=== PATIENT | male | born 1955 | race Caucasian/White ===

== ENCOUNTER 2016-12-25 07:24 | Emergency (ER) | payer OTHER ==
[2016-12-25 07:35] VITALS: BP 134/89
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
== END 2016-12-25 08:39 | disposition home or self-care (01) ==
LOC: UCEAST 07:24
DX: S52.501A Unspecified fracture of the lower end of right radius, initial encounter for closed fracture (principal); E03.9 Hypothyroidism, unspecified; E78.5 Hyperlipidemia, unspecified; I10 Essential (primary) hypertension; Z87.891 Personal history of nicotine dependence; V19.9XXA Pedal cyclist (driver) (passenger) injured in unspecified traffic accident, initial encounter; Y92.9 Unspecified place or not applicable
CPT/HCPCS: 99211; G0463

== ENCOUNTER 2017-10-22 14:18 | Emergency (ER) | payer OTHER ==
[2017-10-22] MEDS ORDERED: NS 0.9% 1000 ML* 2,000 ML IV ONE (14:23)
[2017-10-22] MEDS ORDERED: Ondansetron INJ* 2 MG/ML VIAL IV ONE (14:32)
[2017-10-22] MEDS ORDERED: Morphine VIAL* 10 MG/ML 1 ML VIAL IV ONE ×2 (14:46→14:57)
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
[2017-10-22 15:06] VITALS: BP 168/83
== END 2017-10-22 15:05 | disposition short-term general hospital (02) ==
LOC: UCEAST 14:18
DX: R42 Dizziness and giddiness (principal); K46.9 Unspecified abdominal hernia without obstruction or gangrene; I10 Essential (primary) hypertension; J45.909 Unspecified asthma, uncomplicated; Z87.891 Personal history of nicotine dependence; R11.0 Nausea; R53.81 Other malaise
CPT/HCPCS: 93005; 96360; 96361; 96374; 96375; 99213; G0463; J2270; J2405

== ENCOUNTER 2017-10-22 15:22 | Inpatient (IN) | payer OTHER ==
[2017-10-22] MEDS ORDERED: NS 0.9% 1000 ML* 1,000 ML IV ONE (16:12)
[2017-10-22] MEDS ORDERED: Ondansetron INJ* 2 MG/ML VIAL IV ONE (16:13)
[2017-10-22] MEDS ORDERED: fentaNYL* 50 MCG/ML 2 ML VIAL (100 MCG VIAL) IV SLOW PU ONE (16:13)
[2017-10-22 16:29] LABS: ABS Basophils 0 10^3/ul (0-0.2); ABS Eosinophils 0 10^3/ul (0-0.6); ABS Lymphocytes 0.6 10^3/ul (1.0-4.8); ABS Monocytes 0.5 10^3/ul (0-0.8); ABS Neutrophils 8.1 10^3/ul (1.5-7.7); ABS Nucleated RBC 0 10^3/ul; Eosinophil % 0.4 % (0-6); Hematocrit 35 % (42-52); Hemoglobin 11.6 g/dl (14.0-18.0); Lymphocyte % 6.3 % (25-47); Mean Corpuscular HGB Conc 33 g/dl (31-36); Mean Corpuscular Hemoglobin 27 pg (27-31); Mean Corpuscular Volume 82 fL (80-94); Mean Platelet Volume 7.2 um3 (7.4-10.4); Nucleated Red Blood Cells % 0; Platelet Count 196 10^3/ul (150-450); Red Cell Distribution Width 15 % (10.5-15); White Blood Count 9.3 10^3/ul (3.5-10.8)
[2017-10-22 16:37] LABS: INR 1.06 (0.77-1.02)
[2017-10-22 16:44] LABS: EGFR Non-African American 66.7 (>60)
[2017-10-22 16:45] LABS: Urine Appearance Cloudy; Urine Blood Negative (Negative); Urine Color Yellow; Urine Ketones 1+ (Negative); Urine Protein Negative (Negative); Urine Red Blood Cell Trace(0-2/hpf) (Absent); Urine Specific Gravity 1.011 (1.010-1.030); Urine Urobilinogen Negative (Negative); Urine White Blood Cell 1+(6-10/hpf) (Absent)
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
[2017-10-22] MEDS ORDERED: Iohexol 300* (CONTRAST) 10 ML SDV IV ONE (18:17)
[2017-10-22] MEDS ORDERED: HYDROmorphone INJ* 2 MG/ML CARPUJECT SYRINGE IV SLOW PU ONE (18:55)
--- NOTE | 2017-10-22 19:21 | RAD ---
EXAM: CT Abdomen and Pelvis With Intravenous Contrast CLINICAL HISTORY: 62 years old, male; Pain; Abdominal pain; Localized; Right lower quadrant (rlq); Prior surgery; Surgery date: 6+ months; Surgery type: Hernia repair to rt groing over 40 yrs ago; Patient HX: Umbilical hernia repair over 15 yrs ago; Additional info: Incarcirated rt ingunal hernia TECHNIQUE: Axial computed tomography images of the abdomen and pelvis with intravenous contrast. All CT scans at this facility use at least one of these dose optimization techniques: automated exposure control; mA and/or kV adjustment per patient size (includes targeted exams where dose is matched to clinical indication); or iterative reconstruction. Coronal and sagittal reformatted images were created and reviewed. CONTRAST: 105 mL of OMNIPAQUE 300 administered intravenously. COMPARISON: No relevant prior studies available. FINDINGS: Lung bases: Bilateral atelectasis at lung bases. ABDOMEN: Liver: Unremarkable. No mass. Gallbladder and bile ducts: Unremarkable. No calcified stones. No ductal dilation. Pancreas: Unremarkable. No mass. No ductal dilation. Spleen: Unremarkable. No splenomegaly. Adrenals: Unremarkable. No mass. Kidneys and ureters: Unremarkable. No solid mass. No hydronephrosis. Stomach and bowel: Right inguinal hernia containing loop of small bowel. The proximal small bowel is dilated. The distal small bowel is relatively decompressed(series 602, image 59). There is fluid in the hernial sac. Findings are concerning for bowel compromise. PELVIS: Appendix: Appendix was not distinctly visualized. No finding to suggest acute appendicitis. Bladder: Unremarkable. No mass. Reproductive: Unremarkable as visualized. ABDOMEN and PELVIS: Intraperitoneal space: Unremarkable. No free air. No significant fluid collection. Bones/joints: Degenerative changes of the spine. No acute fracture. No dislocation. Soft tissues: See above. Vasculature: Unremarkable. No abdominal aortic aneurysm. Lymph nodes: Unremarkable. No enlarged lymph nodes. IMPRESSION: Right-sided inguinal hernia with loop of small bowel. The proximal small bowel is dilated with relative decompression of the distal bowel. These findings are concerning for bowel compromise, possibly early obstruction.
[2017-10-22] MEDS ORDERED: ceFAZolin 2 GM PREMIX in ORs 2 GM/50 ML BAG IVPB ONE (20:25)
[2017-10-22] MEDS ORDERED: Bupivacaine 0.25% W/EPI* 10 ML SDV ONE (21:52)
[2017-10-22] MEDS ORDERED: Midazolam* 1 MG/ML 2 ML VIAL (2 MG) ONE (22:19)
[2017-10-22] MEDS ORDERED: fentaNYL* 50 MCG/ML 2 ML VIAL (100 MCG VIAL) ONE (22:19)
[2017-10-22] MEDS ORDERED: Rocuronium* 10 MG/ML VIAL ONE (22:32)
[2017-10-22] MEDS ORDERED: Succinylcholine* 20 MG/ML 10 ML VIAL ONE (22:55)
[2017-10-22] MEDS ORDERED: Propofol* 10 MG/ML 20 ML BTL IV PUSH ONE (22:55)
[2017-10-22] MEDS ORDERED: Dexamethasone IV* 4 MG/ML 1 ML (4 MG) ONE (22:59)
[2017-10-22] MEDS ORDERED: Ondansetron INJ* 2 MG/ML VIAL ONE (22:59)
[2017-10-23] MEDS ORDERED: Rocuronium* 10 MG/ML VIAL ONE (00:08)
[2017-10-23] MEDS ORDERED: Glycopyrrolate IV* 0.2 MG/ML 1 ML VIAL ONE (00:13)
[2017-10-23] MEDS ORDERED: Neostigmine Methylsulfate* 1 MG/ML 10 ML VIAL (1 mg/ml) ONE (00:13)
[2017-10-23] MEDS ORDERED: Labetalol IV* 5 MG/ML 20 ML VIAL ONE (02:11)
[2017-10-23] MEDS ORDERED: HYDROmorphone INJ* 0.5 MG/0.5 ML SYRINGE IV PRN (02:15)
[2017-10-23] MEDS ORDERED: Naloxone* 0.4 MG/ML 1 ML VIAL IV PRN (02:15)
[2017-10-23] MEDS ORDERED: Ondansetron INJ* 2 MG/ML VIAL IV PRN ×2 (02:15→02:28)
[2017-10-23] MEDS ORDERED: fentaNYL* 50 MCG/ML 2 ML VIAL (100 MCG VIAL) ONE (02:19)
[2017-10-23] MEDS ORDERED: HYDROmorphone INJ1* 1 MG/ML SYRINGE ONE (02:19)
[2017-10-23] MEDS: fentaNYL* 50 MCG/ML 2 ML VIAL (100 MCG VIAL) IV PRN ×2 (02:20→02:38)
[2017-10-23] MEDS ORDERED: oxyCODONE/Acetamin 5/325 MG* TAB PO PRN (02:28)
[2017-10-23] MEDS ORDERED: Morphine INJ* 2 MG/ML 1 ML SYRINGE (TWO MG - NEW SYRINGE VERSION) IV PRN (02:32)
[2017-10-23] MEDS ORDERED: Zosyn per Pharmacy* NOTE FOLLOW UP PRN (03:35)
--- NOTE | 2017-10-23 03:46 | HP ---
CC: [facility]; Dr. Benny Veliz; Dr. Dhiraj Delaney.* HISTORY AND PHYSICAL: Mr. Chung is a 62-year-old gentleman who presented to the emergency room from [facility] care with complaints of right groin bulge and abdominal pain. Patient had been working in the sun with a bear costume, it became very hot and uncomfortable, had some nausea and fatigue and decided to call the day, went home and had severe abdominal pain and went to the [facility] for evaluation with concern for dehydration. He was then noted to have a "a pop" while at the urgent care area being evaluated and a right inguinal bulge was identified. He was sent to the emergency room where he was evaluated. Pain was controlled with narcotics. Patient denied any previous similar symptoms. He did complain of obstipation, nausea without vomiting. PAST MEDICAL HISTORY: Hypothyroidism, hypercholesterolemia, hypertension. PAST SURGICAL HISTORY: Right inguinal hernia repair open as a 21-year-old. He is not sure if he had a mesh placed or not and then umbilical hernia repair 15 years ago at this hospital without mesh and an orthopedic surgery. MEDICATIONS: Include: 1. Rosuvastatin. 2. Amlodipine. 3. Metoprolol. 4. Levothyroxine. 5. Aspirin 81 mg. 6. Patient also takes Motrin as needed. ALLERGIES: He has no known drug allergies. SOCIAL HISTORY: He does not smoke. He drinks approximately 1 drink at night. Denies IV drug abuse. He works at [employer] in [employer]. He is and lives with his . FAMILY HISTORY: Noncontributory. REVIEW OF SYSTEMS: No shortness of breath or chest pain. Nausea as described. Abdominal pain as described. No dysuria. Obstipation. Last bowel movement was yesterday. Patient has had a colonoscopy in the past. Good exercise tolerance. No complications with anesthesia. No bleeding or clotting disorders. No psychiatric illnesses. Endocrine disorder of hypothyroidism. PHYSICAL EXAMINATION GENERAL: He is alert and oriented x3, he is in no apparent distress. VITAL SIGNS: Patient has been afebrile since coming to the hospital. Heart rate within normal limits. Blood pressure is well 128/61. HEAD, EARS, EYES, NOSE, AND THROAT: Normocephalic, atraumatic. Sclerae anicteric. Mucous membranes are moist. NECK: No lymphadenopathy. LUNGS: Clear to auscultation bilaterally. HEART: S1, S2. No murmurs appreciated. ABDOMEN: Soft, nondistended, nontender. Hypoactive bowel sounds. Right inguinal bulge is tender to the touch with no overlying skin changes. This is not reducible without causing too much discomfort. RECTAL: Exam not performed. SCROTAL: Exam was performed and bilateral testicles are normal descended in the scrotum. EXTREMITIES: Within normal limits. LABORATORY DATA: Showed a white count of 9.3 with left shift. H and H 11.6/ 35. Metabolic panel reviewed. Urinalysis with 1+ ketones. DIAGNOSTIC STUDIES: Patient underwent a CAT scan of the abdomen and pelvis with p.o. contrast. These images were reviewed as well as a report that shows a small bowel loop and a right inguinal hernia with decompression of the distal bowel consistent with a small bowel obstruction and concern for a bowel compromise. No free air. I do not appreciate any free fluid. IMPRESSION: Incarcerated recurrent right inguinal hernia with possibility of ischemic bowel and strangulation. I recommend laparoscopic repair of a right inguinal hernia with mesh and laparoscopy with evaluation of the small bowel for possible small bowel resection. I outlined the details of the procedure to Mr. Chung regarding the risks, benefits, and alternatives. I spoke the possibility of open procedure, need for bowel resection and the possibility of leak from the reanastomosis. The possibility of recurrent hernia, prolonged hospitalization. The patient's questions were answered and he will be taken to the OR and NG tube has been placed. Approximately 1 L of fluid was removed. He will go under general anesthesia with intent of reducing the hernia and getting into the hernia space for repair and then laparoscopy. [id number]/[facility] #: [id number] MTDD
[2017-10-23] MEDS ORDERED: ZOSYN 3.375 GM x ONE DOSE over 30 miuntes IVPB ×2 (04:00)
[2017-10-23] MEDS: Ketorolac INJ* 30 MG/ML 1 ML VIAL IV PRN ×3 (08:09→20:36)
[2017-10-23] MEDS: Piperacillin/Tazobactam VIAL*) 3.375 GM in NS 0.9% 100 ML* 100 ML IVPB SCH ×3 (09:52→21:36)
[2017-10-23] MEDS ORDERED: Metoprolol Tartrate IV* 1 MG/ML 5 ML VIAL IV PRN ×2 (10:58→11:18)
--- NOTE | 2017-10-23 11:01 | PN ---
Progress Note - Progress Note Date of Service: 10/23/17 SOAP: Subjective: Pt seen and examined. feeling better. thirsty. no nausea. NGT with minimal output no flatus. Not OOB yet Objective: Temp Pulse Resp BP Pulse Ox 98.1 F 68 18 136/70 100 10/23/17 07:23 10/23/17 07:23 10/23/17 09:52 10/23/17 07:23 10/23/17 07:23 Intake & Output 10/22/17 10/23/17 10/23/17 22:59 06:59 14:59 Intake Total 1000 1262 Output Total 260 Balance 1000 1002 Weight 174 lb 174 lb a and o x3 lungs clear abdo: soft/ ND/ incisional tenderness dressing cdi no calf tenderness Assessment: POD0 SB resection, hernia reapir Plan: d/c ngt possible d/c mckeon later today after pt ambulates continue NPO IV lopressor pain control
[2017-10-23] MEDS: Levothyroxine INJ* 100 MCG/5 ML VIAL IV SCH (11:54)
--- NOTE | 2017-10-23 12:54 | OP ---
CC: Benny Veliz MD; Dhiraj Delaney MD; [facility] * DATE OF OPERATION: 10/23/17 - ROOM #339 DATE OF : 57. SURGEON: Jatin Jean MD. NEUROSURGERY SPINE PHYSICIAN: None. ANESTHESIOLOGIST: Dr. Abarca. ANESTHESIA: Local MAC. PRE-OP DIAGNOSIS: Incarcerated right inguinal hernia, recurrent. POST-OP DIAGNOSIS: Incarcerated right inguinal hernia, recurrent. OPERATIVE PROCEDURE: Open right inguinal hernia repair with mesh and a small bowel resection. ESTIMATED BLOOD LOSS: 100 cc. FLUIDS: Crystalloid fluids given. SPECIMEN: 1. A portion of small bowel. 2. Hernia sac. DRAINS: None. COUNTS: Lap pad count and instrument count correct at the end of the procedure. DESCRIPTION OF PROCEDURE: Mr. Chung had been marked. Case was discussed and a H and P dictated. He was seen by the anesthesiologist, brought to the operating room, placed on the operating table in supine position. Preoperative antibiotics were given. Sequential devices were placed on bilateral lower extremities. General anesthesia was induced. A Balderas catheter was inserted. Next, I made an attempt to reduce the right inguinal hernia. This was very tense at this point and my concern was that I would not able to reduce it with taxis and even if with the laparoscopic approach, I would have difficult time with this recurrent hernia to distally reduce the contents. For this reason, I changed the decision for laparoscopic approach to an approach for this repair. The patient was clipped of hair and prepped and draped in a standard surgical fashion. A time-out was performed. An inguinal incision was made over the previously placed inguinal incision. This was deepened down to the aponeurosis of external oblique. This was attenuated. We did incise this in the direction of the fibers after identifying a hernia medially to this. We could see spermatic structures adjacent to a large distended hernia. We extended the incision of the aponeurosis external oblique medially to the hernia and the spermatic structures and then laterally. I attempted to make flaps cephalad, but ran into the portion of what appeared to be the vasculature of the spermatic cord structures. The cord structures were then isolated right off of the hernia sac with blunt dissection and I placed a [place] drain around this. This will allow for me to better appreciate the hernia itself with both blunt and sharp dissection and get around the medial aspect in the inferior aspect. It appeared to be a very tight defect. Attention was then returned back to the floor of the inguinal canal, which again was scoured in with the vas that clearly going in the appropriate direction towards the deep ring, but the rest of the cord structures taking a more complicated path. They were away from the hernia defect itself. For this reason, we just retracted them laterally and inferiorly to get better access to the hernia sac. Again, additional dissection was carried out until we could free up the entire hernia from all the adjacent structures. This appeared to be right at the medial aspect of the inguinal canal, but it did not appear to be femoral in nature. Again, the floor of the canal was difficult to see appropriately. It was intact with transversalis fascia encompassing this and holding, but for this medial defect. The hernia sac was stripped down until we can get to the main sac itself, which finally was opened up. Some dark-colored fluid was appreciated and a small portion of small bowel was identified and it appeared somewhat ischemic. The contents of the hernia namely small bowel could not be reduced through this very small defect and I was able to free the medial edge of this and opened this up with Davis scissors. Once the defect was somewhat larger, cutting what was likely part of conjoint tendon. We were able to bring additional small bowel into the field of view. This still was proved difficult and I cut more of the tendon to get a better exposure. Once we were able to do this, we can pull additional small bowel from the abdomen into line of vision. Now, we placed some warm towels into the small bowel. It did not show any significant improvement and for this reason, I made a decision to do a resection with primary anastomosis. The mesentery of the resected small bowel was then taken with Estefani clamps and 2-0 Vicryl ties until we had 2 ends of the good-appearing bowel both proximal and distal not knowing which we brought this in opposition to one another and after protecting the wound with multiple lap pads and clamping the bowel distally, I made neurotomies and made two with 60 mm blue KALI stapler. We used approximately 5 cm of it. The common defect was then transected with a TA-60 blue stapler taking not only closing the defect, but removing the ischemic portion of that bowel. This was then passed off as specimen. The corners of the anastomosis was dunked with 3-0 silk sutures and the crutch of the staple line was reapproximated with 3-0 silk sutures as well. The bowel appeared viable. Hemostasis was excellent. There was almost no defect in the mesentery to worry about the closure of the site. The bowel was then dropped back into the abdomen and the edges of the hernia sac were again identified. They were debrided down to the edges and then the hernia sac itself was reapproximated with a pursestring 2-0 Polysorb suture. This then fell back in following the bowel and then we could appreciated the defect which was at this point approximately 2 cm. Next, I made the decision to place a large plug into the site without the concern for the floor of the inguinal canal as this again was scoured and did not appear to be at risk. A plug was then placed and sutured to Phillip's inferiorly, conjoint tendon medially and floor of the canal laterally. There is significant oozing of blood within the defect filling up the cone of the plug , I could not appreciate what was bleeding and a couple of sutures out and removed this plug. We held pressure with gauze in the site. I was able to evaluate some of this defect. It did not appear to enter into the abdomen would rather just could be peritoneal space extending towards the midline. The second plug was reapplied and this similarly closed. Again, significant oozing was appreciated and I did not feel we had control of this. So, this second plug was then removed. Now, we went into the defect pulling up what appeared to be rectus muscle. Cautery was utilized to gain hemostasis. There was no significant arterial venous bleed with rather just persistent oozing at this site. I did not feel we were in any other structure rather than the rectus muscle. The abdominal cavity was not within this site and I feel that the pursestring closure held and we were all extraperitoneal at this point. Copious irrigation again was used and at this time we scoured the musculature. We achieved hemostasis. A third large plug was then inserted and sutured in a similar fashion now with the suture at the conjoint medially at the Phillip's ligament inferiorly and laterally and inferiorly to what was the floor of this repaired inguinal canal. The good portion of the mesh was laid unfurl underneath it and follow as we sutured it to the inner leaflets of the plug. I did not feel that I want to place a mesh at the floor of the canal. This again was scoured and felt that had no defect and with the spermatic structures taking various courses, I did not think this is prudent. Again copious irrigation was used and hemostasis was achieved. We then closed the lateral aspect of the aponeurosis external oblique taking care not to warehouse order picker any of the spermatic structures. We did transect the ilioinguinal nerve as this ran along the spermatic structures since then I was not sure about the lateral aspect of it, so this was transected. We then reapproximated Sommer's fascia with 3-0 Vicryl sutures and then closed the skin with skin barrett followed by sterile dressing. The patient tolerated the procedure well, was extubated in the OR, and transferred to the PACU in stable condition. [id number]/[facility] #: [id number] MTDD
[2017-10-23] MEDS: Morphine INJ* 2 MG/ML 1 ML SYRINGE (TWO MG - NEW SYRINGE VERSION) IV PRN ×2 (13:09→16:24)
[2017-10-23] MEDS: Heparin VIAL(*) 5000 UNITS/ML VIAL (FIVE THOUSAND) SUBCUT SCH ×2 (14:35→21:36)
[2017-10-24] MEDS: Piperacillin/Tazobactam VIAL*) 3.375 GM in NS 0.9% 100 ML* 100 ML IVPB SCH ×2 (03:49→10:00)
[2017-10-24] MEDS: Ketorolac INJ* 30 MG/ML 1 ML VIAL IV PRN ×3 (04:44→15:38)
[2017-10-24] MEDS: Heparin VIAL(*) 5000 UNITS/ML VIAL (FIVE THOUSAND) SUBCUT SCH ×3 (05:42→21:25)
[2017-10-24] MEDS: Levothyroxine INJ* 100 MCG/5 ML VIAL IV SCH (05:42)
[2017-10-24 05:48] LABS: ABS Basophils 0 10^3/ul (0-0.2); ABS Eosinophils 0.1 10^3/ul (0-0.6); ABS Lymphocytes 0.7 10^3/ul (1.0-4.8); ABS Monocytes 0.6 10^3/ul (0-0.8); ABS Neutrophils 3.5 10^3/ul (1.5-7.7); ABS Nucleated RBC 0 10^3/ul; Eosinophil % 2.4 % (0-6); Hematocrit 28 % (42-52); Hemoglobin 9.3 g/dl (14.0-18.0); Lymphocyte % 14.7 % (25-47); Mean Corpuscular HGB Conc 33 g/dl (31-36); Mean Corpuscular Hemoglobin 27 pg (27-31); Mean Corpuscular Volume 81 fL (80-94); Mean Platelet Volume 7.4 um3 (7.4-10.4); Nucleated Red Blood Cells % 0; Platelet Count 148 10^3/ul (150-450); Red Cell Distribution Width 15 % (10.5-15); White Blood Count 4.9 10^3/ul (3.5-10.8)
[2017-10-24 06:12] LABS: EGFR Non-African American 78.7 (>60)
--- NOTE | 2017-10-24 09:08 | PN ---
Progress Note - Progress Note Date of Service: 10/24/17 Note: S: POD #2. On Zosyn. Pain controlled. No N/V. Maybe a little appetite. No flatus or BM. Ambulating a bit. No SOB or CP. O: Vital Signs - 8 hr 10/24/17 03:57 Temperature 98.4 F Pulse Rate 55 Respiratory 16 Rate Blood Pressure 135/78 (mmHg) O2 Sat by Pulse 98 Oximetry Intake and Output Last 24 Hours 10/22/17 10/23/17 10/24/17 10/25/17 06:59 06:59 06:59 06:59 Intake Total 2262 2096 Output Total 260 1700 Balance 2001 396 Weight 174 lb Intake: IV Fluids 0 1995 LR 1756 NS (0.9%) 40 NS 50ML, Cefazolin 2G 50 lr 1000 zosyn 100 200 IVPB 112 100 LR 112 zosyn 100 Oral 0 0 Output: Urine 650 Balderas 250 1050 Residual 10 Balderas 16 Fr 10 Other: # Bowel Movements 0 Gen: NAD Heart: reg Lungs: clear; few bibasilar crackles Abd: min distension and tympany; +BS, though hypo; soft, nontender to palp, other than R groin incision (dsg clean, dry) Laboratory Tests 10/22/17 10/24/17 16:20 05:21 Hgb 11.6 L 9.3 L Hct 35 L 28 L Chemistries ok. A: s/p open repair incarc RIH w/ mesh; SB rsxn P: will d/c Balderas; increase ambulation/activity; will check w/ Dr. Jean re: starting clears and heplocking IV.
[2017-10-24] MEDS: D5W 1/2 NS KCl 20 Meq 1000 ML* 1,000 ML IV SCH (11:26)
[2017-10-24] MEDS: Acetaminophen TAB* 325 MG PO PRN (13:31)
[2017-10-24] MEDS: TAZOBACTAM IVPB SCH ×2 (16:33→21:27)
[2017-10-24] MEDS: PIPERACILLIN IVPB SCH ×2 (16:33→21:27)
[2017-10-24] MEDS: NS 0.9% IVPB SCH ×2 (16:33→21:27)
[2017-10-25] MEDS: NS 0.9% IVPB SCH ×4 (04:14→21:35)
[2017-10-25] MEDS: PIPERACILLIN IVPB SCH ×4 (04:14→21:35)
[2017-10-25] MEDS: TAZOBACTAM IVPB SCH ×4 (04:14→21:35)
[2017-10-25] MEDS: D5W 1/2 NS KCl 20 Meq 1000 ML* 1,000 ML IV SCH (04:16)
[2017-10-25] MEDS: Heparin VIAL(*) 5000 UNITS/ML VIAL (FIVE THOUSAND) SUBCUT SCH ×3 (06:39→21:36)
[2017-10-25] MEDS: Levothyroxine INJ* 100 MCG/5 ML VIAL IV SCH (06:40)
[2017-10-25] MEDS: Acetaminophen TAB* 325 MG PO PRN (11:01)
--- NOTE | 2017-10-25 12:28 | PN ---
Progress Note - Progress Note Date of Service: 10/25/17 SOAP: Subjective: Pt seen and examined. Feeling better today. Surgical pain. pos flatus, no BM tolerating clears Objective: Temp Pulse Resp BP Pulse Ox 98.6 F 59 18 140/80 99 10/25/17 07:46 10/25/17 11:32 10/25/17 11:32 10/25/17 11:32 10/25/17 11:32 Intake & Output 10/24/17 10/25/17 10/25/17 22:59 06:59 14:59 Intake Total 1000 1147 Output Total 800 1225 200 Balance 200 -78 -200 a and o x3, nad lungs clear abdo: soft/ ND/NT dressing removed. No redness or ecchymosis, though ecchymosis at scrotum tender ext wnl Assessment: POD 2, hernia repair, sb resection; resolving ileus Plan: OOB pain control abx OOB advance diet
[2017-10-25] MEDS: Levothyroxine TAB* 100 MCG TAB PO SCH (13:23)
[2017-10-25] MEDS: Metoprolol Succinate XL TAB* 25 MG PO SCH (13:29)
[2017-10-26] MEDS: TAZOBACTAM IVPB SCH (04:33)
[2017-10-26] MEDS: NS 0.9% IVPB SCH (04:33)
[2017-10-26] MEDS: PIPERACILLIN IVPB SCH (04:33)
[2017-10-26] MEDS: Heparin VIAL(*) 5000 UNITS/ML VIAL (FIVE THOUSAND) SUBCUT SCH (06:23)
[2017-10-26] MEDS: Levothyroxine TAB* 100 MCG TAB PO SCH (06:23)
[2017-10-26 07:56] VITALS: BP 141/86
[2017-10-26] MEDS ORDERED: amLODIPine TAB* 5 MG PO SCH (09:00)
[2017-10-26] MEDS ORDERED: Aspirin 81 mg CHEW TAB* 81 MG TAB.CHEW PO SCH (09:00)
[2017-10-26] MEDS: Metoprolol Succinate XL TAB* 25 MG PO SCH (09:30)
--- NOTE | 2017-10-26 21:26 | DS ---
CC: Dr. Benny Veliz; [facility] * DISCHARGE SUMMARY: DATE OF ADMISSION: DATE OF DISCHARGE: 10/26/17 HOSPITAL COURSE: Mr. Chung is a 62-year-old gentleman who presented to the emergency room with an incarcerated, strangulated, recurrent right inguinal hernia. He promptly went to the operating room where he underwent a repair of the hernia with a small bowel resection of an ischemic portion of bowel. Pathology consistent with 10 cm of ischemic, hemorrhagic, necrotic small bowel. In the postoperative period, the patient did well. Pain was managed with narcotics and on 2 NSAIDs. He was treated with antibiotics and diet slowly advanced by postoperative day 3. The patient was ready for discharge and plan was to follow up as an outpatient in my office. I am going to give him 5 more days of Augmentin and the patient will treat his pain with Tylenol or ibuprofen. PHYSICAL EXAM PERFORMED ON DAY OF DISCHARGE: The patient is afebrile. Vital signs are stable. Head is normocephalic and atraumatic. Sclerae anicteric. Mucous membranes moist. Lungs: Clear to auscultation bilaterally. Abdomen: Soft, mildly distended, nontender, non-tympanic. Positive bowel sounds. Staple line of the right groin clean, dry, and intact, with no erythema. Mild ecchymosis extending down to the scrotum. Extremities within normal limits and no calf tenderness. Postoperative day 3, recurrent right inguinal hernia repair with mesh and small bowel resection for strangulated small bowel. The patient will follow up in the office. Prescriptions sent and he understands to contact our office should he not continue to improve. I have told him to have liquid diet for the next day and half before he advances to a solid diet. [id number]/[facility] #: [id number] [facility]
== END 2017-10-26 10:00 | disposition home or self-care (01) | DRG 329 ==
LOC: ED 15:22 → OR 19:28 → SSU 10-23 03:03
PROVIDERS: ADMIT Surgery; ATTEND Surgery
PROC: 0YU50JZ Supplement Right Inguinal Region with Synthetic Substitute, Open Approach (ICD-10-PCS; principal; 2017-10-23)
PROC: 0DB80ZZ Excision of Small Intestine, Open Approach (ICD-10-PCS; 2017-10-23)
DX: K40.31 Unilateral inguinal hernia, with obstruction, without gangrene, recurrent (principal); K55.029 Acute infarction of small intestine, extent unspecified; K56.7 Ileus, unspecified; E03.9 Hypothyroidism, unspecified; E78.00 Pure hypercholesterolemia, unspecified; I10 Essential (primary) hypertension; J45.909 Unspecified asthma, uncomplicated; K59.00 Constipation, unspecified; Z82.49 Family history of ischemic heart disease and other diseases of the circulatory system; Z72.89 Other problems related to lifestyle; Z87.891 Personal history of nicotine dependence
CPT/HCPCS: 36415; 74177; 80048; 80053; 81003; 81015; 83690; 84484; 85025; 85610; 85730; 87086; 88307; 93005; 96360; 96361; 96374; 96375; 99213; 99284; A9270-GY; C1776; C1781; G0463; J0330; J0690; J1100; J1170; J1644; J1885; J2250; J2270; J2405; J2543; J2704; J2710; J3010; Q9967

== ENCOUNTER 2018-02-15 22:36 | Emergency (ER) | payer OTHER ==
--- NOTE | 2018-02-15 23:00 | ED ---
Laceration/Wound HPI - HPI Summary HPI Summary: A 62 y/o male presents to the ED c/o laceration on right middle finger s/p incident. As per triage, "Pt lacerated his R middle finger on a piece of glass" . According to the patient, he cut himself on some glass. He stated that there was glass in the trash and he tried to pull it out and it sliced him on his right middle finger. - History of Current Complaint Stated Complaint: RT MIDDLE FINGER LACERATION Time Seen by Provider: 02/15/18 22:54 Hx Obtained From: Patient Mechanism of Injury: Sharp/Blunt Trauma - SHARP Onset/Duration: Sudden Onset, Still Present Aggravating: Nothing Alleviating: Nothing Timing: Constant Current Severity: None Pain Intensity: 0 Pain Scale Used: 0-10 Numeric Associated Signs & Symptoms: Negative - Additional Pertinent History Primary Care Physician: [id number] - Allergy/Home Medications Allergies/Adverse Reactions: Allergies Allergy/AdvReac Type Severity Reaction Status Date / Time No Known Allergies Allergy Verified 02/15/18 22:41 PMH/Surg Hx/FS Hx/Imm Hx Endocrine/Hematology History: Reports: Hx Thyroid Disease - HYPOTHYROID Denies: Hx Anticoagulant Therapy, Hx Blood Disorders, Hx Blood Transfusions, Hx Diabetes, Hx Anemia, Hx Unexplained Bleeding Cardiovascular History: Reports: Hx Angina - PRESSURE/PAIN, Hx Hypercholesterolemia, Hx Hypertension Respiratory History: Reports: Hx Asthma - PAST HX Denies: Hx Chronic Obstructive Pulmonary Disease (COPD) GI History: Reports: Other GI Disorders - umbilical hernia,rt groin hernia repair History: Denies: Hx Renal Disease Musculoskeletal History: Reports: Hx Back Problems - low back Denies: Hx Congenital Bone Abnormalities, Hx Fibromyalgia, Hx Gout, Hx Orthopedic Injury, Hx Osteoporosis Sensory History: Reports: Hx Contacts or Glasses Denies: Hx Hearing Aid Opthamlomology History: Reports: Hx Contacts or Glasses - Surgical History Surgery Procedure, Year, and Place: umbillical hernia, rt groin hernia repair , BILAT KNEE ARTHROSCOPIES Hx Anesthesia Reactions: No Infectious Disease History: No Infectious Disease History: Reports: Hx Shingles Denies: History Other Infectious Disease, Traveled Outside the [place] in Last 30 Days - Family History Known Family History: Positive: Cardiac Disease, Hypertension, Other - noncontibutory - Social History Alcohol Use: Daily Alcohol Amount: glass wine each night Substance Use Type: Reports: None Smoking Status (MU): Former Smoker Review of Systems Negative: Fever Positive: Other - POSITIVE: LACERATION ON RIGHT MIDDLE FINGER. All Other Systems Reviewed And Are Negative: Yes Physical Exam - Summary Physical Exam Summary: VITAL SIGNS: Reviewed. GENERAL: Patient is a well-developed and nourished male who is lying comfortable in the stretcher. Patient is not in any acute respiratory distress. HEAD AND FACE: No signs of trauma. No ecchymosis, hematomas or skull depressions. No sinus tenderness. EYES: PERRLA, EOMI x 2, No injected conjunctiva, no nystagmus. EARS: Hearing grossly intact. Ear canals and tympanic membranes are within normal limits. MOUTH: Oropharynx within normal limits. NECK: Supple, trachea is midline, no adenopathy, no JVD, no carotid bruit, no c- spine tenderness, neck with full ROM. CHEST: Symmetric, no tenderness at palpation LUNGS: Clear to auscultation bilaterally. No wheezing or crackles. CVS: Regular rate and rhythm, S1 and S2 present, no murmurs or gallops appreciated. ABDOMEN: Soft, non-tender. No signs of distention. No rebound no guarding, and no masses palpated. Bowel sounds are normal. EXTREMITIES: FROM in all major joints, no edema, no cyanosis or clubbing. NEURO: Alert and oriented x 3. No acute neurological deficits. Speech is normal and follows commands. SKIN: Dry and warm. Superficial laceration to the crystal surface of the right middle finger with free flap. Triage Information Reviewed: Yes Vital Signs On Initial Exam: Initial Vitals Temp Pulse Resp BP Pulse Ox 97.4 F 65 16 153/101 96 02/15/18 22:40 02/15/18 22:40 02/15/18 22:40 02/15/18 22:40 02/15/18 22:40 Vital Signs Reviewed: Yes Procedures - Laceration/Wound Repair RIGHT MIDDLE FINGER Location: Other - RIGHT MIDDLE FINGER Length, Depth and Shape: SUPERFICIAL LACERATION TO THE CRYSTAL SURFACE OF RIGHT MIDDLE FINGER WITH A FREE FLAP. Laceration/Wound Explored: clean Closure: Skin Adhesive - LACERATION REPAIR WITH DERMABOND Diagnostics - Vital Signs Vital Signs Temp Pulse Resp BP Pulse Ox 02/15/18 22:40 97.4 F 65 16 153/101 96 - Laboratory Lab Statement: Any lab studies that have been ordered have been reviewed, and results considered in the medical decision making process. Laceration Repair Course/Dx - Course Course Of Treatment: A 62 y/o male presents to the ED c/o laceration on right middle finger s/p incident. Physical examination findings significant for superficial laceration to the crystal surface of the right middle finger with free flap. No laboratory scans were done. No laboratory screens were done. In the ED course, the patient received Boostrix. Laceration repair was done with cleaning the wound and using a dermabond. Patient will be discharged with a diagnosis of finger laceration. Patient is to follow up with primary care primary care provider in 1-2 days. Patient is to return to ED for any new or worsening symptoms. Patient is agreeable with this plan. - Clinical Impression Provider Diagnoses: Finger laceration Discharge - Sign-Out/Discharge Documenting (check all that apply): Patient Departure - DISCHARGE - Discharge Plan Condition: Stable Disposition: HOME Patient Education Materials: Laceration (ED) Referrals: Benny Veliz MD [Primary Care Provider] - 2 Days Additional Instructions: FOLLOW UP WITH PRIMARY CARE PROVIDER IN 1-2 DAYS. RETURN TO ED FOR ANY NEW OR WORSENING SYMPTOMS. - Attestation Statements Document Initiated by Scribe: Yes Documenting Scribe: Boyd Booth Provider For Whom Scribe is Documenting (Include Credential): Alber Crystal MD Scribe Attestation: Boyd Bauman, scribed for Alber Crystal MD on 02/15/18 at 2304. Status of Scribe Document: Ready
[2018-02-15] MEDS ORDERED: Tetan/Diph/Pertus SYR(Tdap)* 0.5 ML SYR(BOOSTRIX) use SYR IM ONE (23:04)
[2018-02-15 23:16] VITALS: BP 144/56
== END 2018-02-15 23:16 | disposition home or self-care (01) ==
LOC: ED 22:36
DX: S61.212A Laceration without foreign body of right middle finger without damage to nail, initial encounter (principal); W25.XXXA Contact with sharp glass, initial encounter; Y92.9 Unspecified place or not applicable; Z87.891 Personal history of nicotine dependence
CPT/HCPCS: 90471; 90715; 99281

== ENCOUNTER → 2018-03-18 07:02 | Day surgery (SDC) | payer OTHER ==
--- NOTE | 2018-03-10 00:46 | HP ---
CC: Dr. Veliz; Dr. Delaney * ADMISSION HISTORY AND PHYSICAL: DATE OF ADMISSION: 03/18/18 ATTENDING SURGEON: Dr. Jatin Jean * (KALPANA Sharma dictating). CHIEF COMPLAINT: Hemorrhoids. HISTORY OF PRESENT ILLNESS: This is a 63-year-old male who for at least for the past 10 years has experienced intermittent rectal bleeding. This is typically associated with bowel movements though sometimes occurs subsequent to bowel movements and then will subside for a few side only to recur again. He describes bright red bleeding into the toilet water. He denies any pain. He has undergone 3 attempted banding of internal hemorrhoids most recently by Dr. Jean on 01/22/18. He states that none of these have been successful and in fact the most recent attempt resulted in the bands coming off the next day. He did undergo colonoscopy along with EGD 2 years ago which he states were both normal other than the presence of the internal hemorrhoids. He was noted recently by Dr. Delaney to have significant iron deficiency anemia and was referred for surgical evaluation. He is on iron replacement. He was seen by Dr. Jean in the office on 01/22/18, at which time exam confirmed the presence of small perianal skin tags. On anoscopy, large internal hemorrhoids were noted with evidence of recent bleeding. Dr. Jean has discussed with him the indications for surgery, the risks, benefits, and alternatives and the patient would like to proceed as scheduled with examination under anesthesia and hemorrhoidectomy. PAST MEDICAL HISTORY: Hypertension, hyperlipidemia, hypothyroidism (on replacement). He was evaluated a number of years ago for some atypical chest pain, which has not recurred. He sees Dr. Delaney regularly (see attached). PAST SURGICAL HISTORY: Previous surgeries include bilateral knee arthroscopies , umbilical hernia repair and most recently on 10/23/17 an open repair of an incarcerated right inguinal hernia with small bowel resection by Dr. Jean. CURRENT MEDICATIONS: 1. Levothyroxine 100 mcg once daily. 2. Metoprolol succinate extended release 25 mg one-half tablet once daily. 3. Amlodipine 2.5 mg once daily. 4. Crestor 5 mg one-half tablet 3 times weekly. 5. Aspirin 81 mg once daily (the patient had recently stopped because of the hemorrhoidal bleeding). 6. Slow release iron 45 mg elemental b.i.d. 7. Colace 100 mg daily. 8. Nitroglycerin 0.4 mg sublingual p.r.n. (the patient has not required). DRUG ALLERGIES: None. FAMILY HISTORY: Negative for anesthesia problems, bleeding, or clotting disorders. SOCIAL HISTORY: The patient is . He works in [employer] at [place]. He is a former smoker who quit in 1981. He drinks on average 4 drinks per week. He denies any recreational drug use. REVIEW OF SYSTEMS: General: No recent constitutional symptoms or acute illnesses. He has had an intentional weight loss of about 40 pounds over the past year. HEENT: No problems reported. Cardiovascular: No chest pain or palpitations. See attached from Dr. Delaney. Respiratory: No shortness of breath or chronic cough. GI: No problems reported other than the HPI. : No problems reported. Endocrine: No diabetes. He is on thyroid replacement. Remainder of review of systems is negative. PHYSICAL EXAMINATION GENERAL: Well-nourished, well-developed male, in no acute distress. VITAL SIGNS: Height 6 feet 1 inch, weight 215 pounds. Blood pressure 142/90, pulse 72, respirations 16. HEENT: Pupils equal and round, reactive. EOMs intact. No significant conjunctival pallor. Oropharynx, teeth in good repair. No intraoral lesions. NECK: No lymphadenopathy, thyromegaly, or masses. LUNGS: Clear to auscultation. No rales or wheezes. HEART: Regular rate and rhythm. No murmur appreciated. ABDOMEN: Soft, nontender to palpation. No palpable masses or organomegaly. GENITALIA: Not examined. RECTAL: Not done (see above per Dr. Jean's exam). BACK: No spinous process or CVA tenderness. EXTREMITIES: No edema. NEUROLOGICAL: Grossly intact. SKIN: Warm and dry. No suspicious rashes or lesions noted. IMPRESSION: Internal hemorrhoids. PLAN: Examination under anesthesia; hemorrhoidectomy. KALPANA SHARMA [id number]/[facility] #: [id number] ARGELIA
[~2018-03-18 07:02] MED LIST: Acetaminophen TAB* 325 MG PO PRN; Atracurium* 10 MG/ML 10 ML VIAL ONE; Buffered Lidocaine 1% SYRIN* 1 ML/SYRINGE INTRADERM ONE; Bupivacaine 0.25% SDV PF* 10 ML VIAL INJ ONE; Dexamethasone IV* 4 MG/ML 1 ML (4 MG) IV SLOW PU ONE; Dexamethasone IV* 4 MG/ML 1 ML (4 MG) ONE; Famotidine IV* 10 MG/ML 2 ML (20 mg) IV ONE; Famotidine IV* 10 MG/ML 2 ML (20 mg) ONE; Gelfoam Sponge SIZE 100* SPONGE ONE; HYDROcodone/ACETAMIN 5-325 MG* 1 TAB ONE; HYDROcodone/ACETAMIN 5-325 MG* 1 TAB PO PRN; Ketorolac INJ* 30 MG/ML 1 ML VIAL IV PRN; Lactated Ringers 1000 ML Bag* 1,000 ML IV SCH; Lidocaine 2% PF * 5 ML VIAL ONE; Midazolam* 1 MG/ML 2 ML VIAL (2 MG) ONE; Morphine VIAL* 10 MG/ML 1 ML VIAL ONE; Morphine VIAL* 4 MG/ML VIAL (1 ml vial) IV PRN; Naloxone* 0.4 MG/ML 1 ML VIAL IV PRN; Ondansetron INJ* 2 MG/ML VIAL IV PRN; Propofol* 10 MG/ML 20 ML BTL ONE; Succinylcholine* 20 MG/ML 10 ML VIAL ONE; ceFAZolin 2 GM PREMIX in ORs 2 GM/50 ML BAG IVPB ONE; fentaNYL* 50 MCG/ML 2 ML VIAL (100 MCG VIAL) IV PRN; fentaNYL* 50 MCG/ML 2 ML VIAL (100 MCG VIAL) ONE
--- NOTE | 2018-03-18 10:33 | BRIEFOPN ---
Brief Operative Note - Surgery Procedures: Procedures Pre-OP Diagnoses: Hemorrhoids Post-op Diagnosis: same Procedure: Exam under anesthesia, hemorrhoidectomy Surgeon: Miranda Asst: none Anethesia: GETA EBL: 50cc IVF: crystalloid Specimen: hemorrhoid x2 Drains: none
[2018-03-18 12:05] VITALS: BP 147/92
--- NOTE | 2018-03-18 12:44 | OP ---
CC: Benny Veliz MD * DATE OF OPERATION: 03/18/18 - [facility] DATE OF : 57 SURGEON: Jatin Jean MD. CRITICAL CARE TECHNICIAN: None. ANESTHESIOLOGIST: Dr. Meier. ANESTHESIA: General anesthesia. PRE-OP DIAGNOSIS: Hemorrhoids. POST-OP DIAGNOSIS: Hemorrhoids. OPERATIVE PROCEDURE: Exam under anesthesia and hemorrhoidectomy x2. ESTIMATED BLOOD LOSS: Less than 50 cc. FLUIDS: Crystalloid fluid given. SPECIMEN: Hemorrhoids x2. DRAINS: None. DESCRIPTION OF PROCEDURE: The patient was identified in the preoperative area. Consent was signed after discussion of the risks, benefits, and alternatives. We spoke of the possible complications, which include not limited to bleeding , infection, need for additional procedures and clearance, possibility of incontinence to flatus or stool and the need for possible additional surgeries regarding that. The patient signed consent. He was taken to the operating room. General anesthesia was delivered while the patient was brought in the stretcher and he was placed in the prone position on the OR table. Buttocks was spread apart. The patient was placed in the Trung knife prone position. The perianal area was prepped with Betadine and draped. Time-out was performed. The patient had received preoperative antibiotics and sequential devices on bilateral lower extremities. Anal canal was dilated to three fingers slowly. The stool was evacuated as needed and then an anal retractor was inserted. Review of the perianal area showed three hemorrhoids, one small at approximately the 10 o'clock position and two larger ones at 5 o'clock and 7 o'clock. Decision was made to remove these two. They were bordering each other very closely. We then placed a 2-0 Vicryl stitch proximally after grasping the hemorrhoid. The stitch was tied and held for retraction purposes. Next, stitch similarly was placed at the 5 o' clock hemorrhoid. Next, injection of lidocaine was carried out at the perianal skin. This was incised with scalpel in an elliptical fashion. We removed the hemorrhoid and the perianal skin, lifting it off the sphincter muscles. We used both LigaSure and cautery as needed. The hemorrhoid was passed off. We did similarly to the 5 o'clock hemorrhoid. Next, we reconstructed the perianal canal with the 2-0 Vicryl stitch in a running fashion. There was a small strip of perianal skin between the two hemorrhoids and utilized this for the closure. Hemostasis was achieved. Review of the perianal area showed that the most significant portion of the disease was removed and Gelfoam was inserted in this perianal area, and the patient was awoken up and was transferred to the PACU in stable condition. [id number]/[facility] #: [id number] MTDD
== END | disposition home or self-care (01) ==
LOC: OR 07:02
PROVIDERS: ATTEND Surgery
DX: K64.2 Third degree hemorrhoids (principal); I10 Essential (primary) hypertension; E78.5 Hyperlipidemia, unspecified; E03.9 Hypothyroidism, unspecified
CPT/HCPCS: 88304; J0330; J0690; J1100; J2250; J2270; J2704; J3010; J3490